=== PATIENT | male | born 1970 | race Caucasian/White ===

== ENCOUNTER 2019-01-18 09:29 | Emergency (ER) | payer OTHER, BC ==
[~2019-01-18] VITALS: Ht 185.4 cm; Wt 115.9 kg
[2019-01-18] MEDS ORDERED: ketorolac trometh. 30mg/ml inj. IM ONE (10:20)
--- NOTE | 2019-01-18 10:26 | NUR ---
ordered knee immobilizer and crutches. Pt states he drove here and is driving home but will wear the knee immobilizer when he gets home. Will provide education on use of knee immobilizer and crutches use.
--- NOTE | 2019-01-18 11:14 | NUR ---
US at bedside
[2019-01-18] MEDS ORDERED: HYDR-3965 PO (11:40)
[2019-01-18 12:03] VITALS: BP 165/83
== END 2019-01-18 11:52 | disposition home or self-care (01) ==
LOC: ER 09:30
DX: S86.111A Strain of other muscle(s) and tendon(s) of posterior muscle group at lower leg level, right leg, initial encounter (principal); M71.21 Synovial cyst of popliteal space [Baker], right knee; Z79.899 Other long term (current) drug therapy; X58.XXXA Exposure to other specified factors, initial encounter; Y93.89 Activity, other specified; Y92.89 Other specified places as the place of occurrence of the external cause; Y99.8 Other external cause status
CPT/HCPCS: 29505; 93971; 96372; 99283; J1885